=== PATIENT | male | born 1970 | race Hispanic/Latino ===

== ENCOUNTER 2017-02-18 18:30 | Emergency (ER) | payer BC ==
[2017-02-18 18:31] VITALS: BMI 22.7
[2017-02-18 18:47] VITALS: TEMP 99
--- NOTE | 2017-02-18 19:07 | ED PDOC ---
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 He explains he is on Oxycodone for chronic back pain. Patient states his PMD and psychiatrist are out of the office until next week. He states he called multiple hotlines and was told to come to the ER. Patient reports diarrhea and body aches. Denies alcohol use. Denies suicidal ideation. PMD: Dr. Wilkerson Psychiatrist: Dr. Roth Time/Duration: > week Symptom Onset: Gradual Symptom Course: Unchanged Modifying Factors (Text): None Past Medical History - Provider Review Nursing Documentation Reviewed: Yes - Infectious Disease Hx of Infectious Diseases: None - Tetanus Immunization Tetanus Immunization: Unknown - Neurological Hx Seizures: Yes - Renal Hx Renal Disorder: No - Musculoskeletal/Rheumatological Hx Back Pain: Yes (Implant in the back) - Gastrointestinal Other/Comment: Gastric Bypass - Psychiatric Hx Depression: Yes Hx Emotional Abuse: No Hx Physical Abuse: No Hx Substance Use: No - Surgical History Hx Gastric Bypass Surgery: Yes (2007) Other/Comment: gastric bypass - Anesthesia Hx Anesthesia: Yes Hx Anesthesia Reactions: No Hx Malignant Hyperthermia: No - Suicidal Assessment Feels Threatened In Home Enviroment: No Family/Social History - Physician Review Nursing Documentation Reviewed: Yes Family/Social History: Unknown Family HX Smoking Status: Heavy Smoker > 10 Cigarettes Daily Hx Alcohol Use: No Hx Substance Use: No Hx Substance Use Treatment: No Allergies/Home Meds Allergies/Adverse Reactions: Allergies bupropion HCl [From Wellbutrin] Allergy (Verified 02/18/17 18:44) ANAPHYLAXIS tram Allergy (Uncoded 02/18/17 18:44) ANAPHYLAXIS Home Medications: Home Meds Medication Instructions Recorded Confirmed Eszopiclone [Lunesta] 3 mg PO HS 08/02/13 10/22/15 Desvenlafaxine Succinate [Pristiq] 50 mg PO DAILY 03/13/14 10/22/15 Trazodone Hydrochloride [Trazodone 75 mg PO HS 03/13/14 10/22/15 HCl] Review of Systems - Physician Review All systems were reviewed & negative as marked: Yes - Review of Systems Gastrointestinal: Diarrhea Musculoskeletal: Arthralgias Psychiatric: absent: Suicidal Ideation Physical Exam Vital Signs Reviewed: Yes Vital Signs Temp Pulse Resp BP Pulse Ox 02/18/17 18:46 99.0 F 88 18 134/83 98 02/18/17 18:37 99 F 88 18 134/83 98 Temperature: Afebrile Blood Pressure: Normal Pulse: Regular Respiratory Rate: Normal Appearance: Positive for: Well-Appearing, Non-Toxic, Comfortable Pain Distress: None Mental Status: Positive for: Alert and Oriented X 3 - Systems Exam Head: Present: Atraumatic, Normocephalic Pupils: Present: PERRL Extroacular Muscles: Present: EOMI Conjunctiva: Present: Normal Mouth: Present: Moist Mucous Membranes Neck: Present: Normal Range of Motion Respiratory/Chest: Present: Clear to Auscultation, Good Air Exchange. No: Respiratory Distress, Accessory Muscle Use Cardiovascular: Present: Regular Rate and Rhythm, Normal S1, S2. No: Murmurs Abdomen: Present: Normal Bowel Sounds. No: Tenderness, Distention, Peritoneal Signs Back: Present: Normal Inspection Upper Extremity: Present: Normal Inspection. No: Cyanosis, Edema Lower Extremity: Present: Normal Inspection. No: Edema Neurological: Present: GCS=15, CN II-XII Intact, Speech Normal Skin: Present: Warm, Dry, Normal Color. No: Rashes Psychiatric: Present: Alert, Oriented x 3, Normal Insight, Normal Concentration Medical Decision Making - Medication Orders Current Medication Orders: Discontinued Medications Clonidine HCl (Catapres) 0.1 mg PO STAT STA Stop: 02/18/17 19:16 - Scribe Statement The provider has reviewed the documentation as recorded by the Adalid Baires Provider Scribe Attestation: All medical record entries made by the Scribjune were at my direction and personally dictated by me. I have reviewed the chart and agree that the record accurately reflects my personal performance of the history, physical exam, medical decision making, and the department course for this patient. I have also personally directed, reviewed, and agree with the discharge instructions and disposition. Disposition/Present on Arrival - Present on Arrival Any Indicators Present on Arrival: No History of DVT/PE: No History of Uncontrolled Diabetes: No Urinary Catheter: No History of Decub. Ulcer: No History Surgical Site Infection Following: Bariatric Surgery, None - Disposition Have Diagnosis and Disposition been Completed?: Yes Diagnosis: Opioid withdrawal Disposition: HOME/ ROUTINE Disposition Time: 19:19 Condition: STABLE Discharge Instructions (ExitCare): Opioid Withdrawal (ED) Additional Instructions: Please follow up with your doctor. Return to the ER for any worsening symptoms or for any other concerns. Prescriptions: cloNIDine [Catapres] 0.1 mg PO Q8H PRN #10 tab PRN Reason: withdrawal symptoms
[2017-02-18 23:37] VITALS: BP 126/68; PULSE 73; RESP 16; O2SAT 99
== END 2017-02-18 20:05 | disposition home or self-care (01) ==
LOC: ED 18:30
DX: F11.23 Opioid dependence with withdrawal (principal)

== ENCOUNTER 2017-05-04 17:50 | Inpatient (IN) | payer BC ==
[2017-05-04] MEDS ORDERED: Sodium Chloride 0.9% 1,000 ML IV STA (18:13)
--- NOTE | 2017-05-04 18:15 | ED PDOC ---
Arrival/HPI - General Chief Complaint: Chest Pain Time Seen by Provider: 05/04/17 17:54 Historian: Patient - History of Present Illness Narrative History of Present Illness (Text): 05/04/17 18:10 A 46 year old male presents to the emergency department with multiple complaints. Patient complains of exertional chest discomfort associated with dyspnea on exertion since earlier today. He also complaining of black stool last night. Patient denies any fever, chills, nausea, vomiting, or other complaints at this time. PMD: Dr. Puga Past Medical History - Provider Review Nursing Documentation Reviewed: Yes - Infectious Disease Hx of Infectious Diseases: None - Tetanus Immunization Tetanus Immunization: Unknown - Neurological Hx Seizures: Yes - Renal Hx Renal Disorder: No - Musculoskeletal/Rheumatological Hx Back Pain: Yes (Implant in the back, neuro stimulator) - Gastrointestinal Other/Comment: Gastric Bypass - Psychiatric Hx Depression: Yes Hx Emotional Abuse: No Hx Physical Abuse: No Hx Substance Use: No - Surgical History Hx Gastric Bypass Surgery: Yes (2007) Other/Comment: gastric bypass - Anesthesia Hx Anesthesia: Yes Hx Anesthesia Reactions: No Hx Malignant Hyperthermia: No - Suicidal Assessment Feels Threatened In Home Enviroment: No Family/Social History - Physician Review Nursing Documentation Reviewed: Yes Family/Social History: Unknown Family HX Smoking Status: Heavy Smoker > 10 Cigarettes Daily Hx Alcohol Use: No Hx Substance Use: No Hx Substance Use Treatment: No Allergies/Home Meds Allergies/Adverse Reactions: Allergies bupropion HCl [From Wellbutrin] Allergy (Verified 05/04/17 18:00) ANAPHYLAXIS tramadol Allergy (Verified 05/04/17 18:03) ANAPHYLAXIS Home Medications: Home Meds Medication Instructions Recorded Confirmed Gabapentin [Neurontin] 100 mg PO BID 05/04/17 05/04/17 Physical Exam - Physical Exam Narrative Physical Exam (Text): - Review of Systems Constitutional: Normal. absent: Fatigue, Weight Change, Fevers Eyes: Normal ENT: Normal Respiratory: Normal absent: SOB, Cough, Sputum Cardiovascular: Chest pain. Dyspnea on exertion. absent: Palpitations, Syncope Gastrointestinal: Black stool. absent: Abdominal pain, Diarrhea, Nausea, Vomiting Genitourinary: Normal. absent: Dysuria, Frequency, Hematuria Musculoskeletal: Normal. absent: Arthralgias, Back Pain, Neck Pain Skin: Normal Neurological: Normal absent: Focal Weakness Endocrine: Normal Hemo/Lymphatic: Normal Psychiatric: Normal - Physical exam Patient appears age appropriate, speaking full sentences without difficulty - Systems Exam Head: Present: Atraumatic, Normocephalic Pupils: Present: PERRL Extraocular Muscles: Present: EOMI Conjunctiva: Present: Normal Mouth: Present: Moist Mucous Membranes Neck: Present: Normal Range of Motion. No: MIDLINE TENDERNESS, Paraspinal Tenderness Respiratory/Chest: Present: Clear to Auscultation, Good Air Exchange. No: Respiratory Distress, Accessory Muscle Use, Tachypnic Cardiovascular: Present: Regular Rate and Rhythm, Normal S1, S2, Peripheral Pulses Present. No: Murmurs Abdomen: Present: Normal Bowel Sounds. Epgiastric tenderness with palpation. No : Peritoneal Signs, Rebound, Guarding, Distention Rectal: Guaiac positive. Female studio potter (Scribe - Dimpal Swanson) present. Back: Present: Normal Inspection. No: Midline Tenderness, Paraspinal Tenderness Upper Extremity: Present: Normal Inspection. No: Cyanosis, Edema Lower Extremity: Present: Normal Inspection. No: Edema Neurological: Present: GCS=15, Speech Normal, cranial nerves II through XII fully intact with no cerebellar abnormality, neuro-sensory fully intact. No focal neurological deficits. Skin: Present: Warm, Dry, Normal Color. No: Rashes Lymphatic: Present: OX3, NI, NC Psychiatric: Present: Alert, Oriented x 3, Normal Insight, Normal Concentration Vital Signs Reviewed: Yes Vital Signs Temp Pulse Resp BP Pulse Ox 05/04/17 19:24 68 18 109/54 L 98 05/04/17 17:55 98.6 F 88 18 121/69 97 Temperature: Afebrile Blood Pressure: Normal Pulse: Regular Respiratory Rate: Normal Appearance: Positive for: Well-Appearing, Non-Toxic, Comfortable Pain Distress: None Mental Status: Positive for: Alert and Oriented X 3 Medical Decision Making ED Course and Treatment: 05/04/17 18:10 Impression: A 46 year old male with chest pain and black stool. On physical examination the patient has epigastric tenderness with palpation and is guaiac positive. Differential Diagnosis included but are not limited to: ACS vs. GI bleed Plan: -- EKG -- Chest X-ray -- Labs -- Urinalysis -- Protonix and IV Fluids -- Reassess and disposition Progress Notes: EKG: Ordered, reviewed, and independently interpreted the EKG. Rate : 80 BPM Rhythm : NSR Interpretation : No ST-segment elevations, normal intervals. Interpreted by me. 05/04/17 20:08 Hb stable normal BUN/Cre ratio VSS dw Dr. Hyde, covering Dr. Ferrer (pt states that's his PMD), agrees with tele admission pt in no distress with no complaints, aware of and agrees with plan Chest xray interpreted by ED physician shows no pneumothorax, no cardiomegaly, no infiltrates - Lab Interpretations Lab Results: 05/04/17 18:44 05/04/17 18:44 Lab Results 05/04/17 19:00: Blood Type Confirm O POSITIVE 05/04/17 18:44: Blood Type O POSITIVE, Antibody Screen Negative, BBK History Checked No verified bt 05/04/17 18:44: TIBC 358 05/04/17 18:44: Sodium 139, Potassium 3.6, Chloride 106, Carbon Dioxide 21, Anion Gap 16, BUN 17, Creatinine 0.7, Est GFR ( Amer) > 60, Est GFR (Non- Af Amer) > 60, Random Glucose 81, Calcium 9.4, Ferritin Pending, Total Bilirubin 0.5, AST 19, ALT 17, Alkaline Phosphatase 50, Lactate Dehydrogenase 323 L, Total Creatine Kinase 43, Troponin I < 0.01, NT-Pro-B Natriuret Pep 72.4 , Total Protein 6.9, Albumin 4.0, Globulin 2.9, Albumin/Globulin Ratio 1.4 05/04/17 18:44: PT 11.3, INR 1.05, APTT 26.1 05/04/17 18:44: WBC 8.6 D, RBC 4.39, Hgb 11.4 L, Hct 35.0 L, MCV 79.7 L, MCH 26.0, MCHC 32.6, RDW 15.3 H, Plt Count 295, MPV 9.4, Gran % 66.3, Lymph % (Auto ) 22.8, [place] % (Auto) 8.3 H, Eos % (Auto) 2.1, Baso % (Auto) 0.5, Gran # 5.71, Lymph # 2.0, [place] # 0.7 H, Eos # 0.2, Baso # 0.04 I have reviewed the lab results: Yes - RAD Interpretation Radiology Orders: 05/04/17 18:12 CHEST PORTABLE [RAD] Stat - Medication Orders Current Medication Orders: Discontinued Medications Sodium Chloride (Sodium Chloride 0.9%) 1,000 mls @ 1,000 mls/hr IV .Q1H STA Stop: 05/04/17 19:12 Last Admin: 05/04/17 18:30 Dose: 1,000 mls/hr Pantoprazole Sodium (Protonix Inj) 40 mg IVP STAT STA Stop: 05/04/17 18:12 Last Admin: 05/04/17 18:31 Dose: 40 mg - Scribe Statement The provider has reviewed the documentation as recorded by the Leroyibjune Swanson Provider Scribe Attestation: All medical record entries made by the Adalid were at my direction and personally dictated by me. I have reviewed the chart and agree that the record accurately reflects my personal performance of the history, physical exam, medical decision making, and the department course for this patient. I have also personally directed, reviewed, and agree with the discharge instructions and disposition. Disposition/Present on Arrival - Present on Arrival Any Indicators Present on Arrival: No History of DVT/PE: No History of Uncontrolled Diabetes: No Urinary Catheter: No History of Decub. Ulcer: No History Surgical Site Infection Following: Bariatric Surgery, None - Disposition Have Diagnosis and Disposition been Completed?: Yes Diagnosis: GI bleed Disposition: HOSPITALIZED Disposition Time: 20:11 Patient Plan: Admission Patient Problems: Current Active Problems Problem Status Onset GI bleed Acute Condition: FAIR Referrals: Nancy Puga MD [Primary Care Provider] - Follow up with primary
[2017-05-04 18:53] LABS: BASO # 0.04 K/mm3 (0.0-2.0); BASO % 0.5 % (0.0-3.0); EOS # 0.2 (0.0-0.7); EOS % 2.1 % (1.5-5.0); GRAN # 5.71 (1.4-6.5); GRAN % 66.3 % (50.0-68.0); HEMOGLOBIN 11.4 gm/dL (14.0-18.0); LYMPH % 22.8 % (22.0-35.0); MEAN CELL VOLUME 79.7 fL (80.0-105.0); MEAN CORPUSCULAR HGB CONC 32.6 g/dl (31.0-37.0); MEAN PLATELET VOLUME 9.4 fl (7.0-11.0); MONO # 0.7 (0.1-0.6); MONO % 8.3 % (1.0-6.0); PLATELET COUNT 295 10^3/uL (120.0-450.0); RBC 4.39 10^6/uL (3.5-6.1); RED CELL DISTRIBUTION WIDTH 15.3 % (11.5-14.5); WHITE BLOOD COUNT 8.6 10^3/ul (4.5-11.0)
[2017-05-04 19:04] LABS: ALB/GLOB RATIO 1.4 (1.1-1.8); ALT/SGPT 17 U/L (7-56); AST/SGOT 19 U/L (15-59); BLOOD UREA NITROGEN 17 mg/dL (7-21); CALCIUM 9.4 mg/dL (8.4-10.5); GFR AFRICAN-AMERICAN > 60; GFR NON-AFRICAN AMERICAN > 60
[2017-05-04 19:05] LABS: INR 1.05 (0.93-1.08); PARTIAL THROMBOPLASTIN TIME 26.1 Seconds (23.7-30.8); PROTHROMBIN TIME 11.3 Seconds (9.9-11.8)
[2017-05-04 19:16] LABS: B-TYPE NATRIURETIC PEPTIDE 72.4 pg/mL (0-450)
[2017-05-04 19:18] LABS: TROPONIN I < 0.01 ng/mL
[2017-05-04] MEDS ORDERED: Morphine 4 mg/ml ISec IVP STA (21:11)
[2017-05-05 01:41] VITALS: BMI 24.3
[2017-05-05] MEDS ORDERED: Morphine 4 mg/ml ISec IVP STA (04:12)
--- NOTE | 2017-05-05 08:11 | RAD ---
HISTORY: cough COMPARISON: 12/31/2014 FINDINGS: LUNGS: No active pulmonary disease. PLEURA: No significant pleural effusion identified, no pneumothorax apparent. CARDIOVASCULAR: Normal. OSSEOUS STRUCTURES: No significant abnormalities. VISUALIZED UPPER ABDOMEN: Normal. OTHER FINDINGS: None. IMPRESSION: No active disease.
--- NOTE | 2017-05-05 08:19 | CP.PCM.HP ---
History of Present Illness - History of Present Illness History of Present Illness: 46 y/o w/m w/ hx of exertional cp sob x 24 h and black stools and not feeling well and comes to the er Present on Admission - Present on Admission Any Indicators Present on Admission: Yes History of DVT/PE: No History of Uncontrolled Diabetes: No Urinary Catheter: No Decubitus Ulcer Present: No Review of Systems - Cardiovascular Cardiovascular: Chest Pain at Rest, Chest Pain with Activity - Gastrointestinal Gastrointestinal: Abdominal Pain, Change in Bowel Habits, Change in Stool Character, Melena - Hematologic/Lymphatic Additional comments: weakness Past Patient History - Infectious Disease Hx of Infectious Diseases: None - Tetanus Immunizations Tetanus Immunization: Unknown - Past Social History Smoking Status: Current Some Days Smoker Chewing Tobacco Use: No Cigar Use: No Alcohol: Occasional Drugs: Denies - NEUROLOGICAL Hx Seizures: Yes - RENAL Hx Chronic Kidney Disease: No - ENDOCRINE/METABOLIC Hx Diabetes Mellitus Type 1: Yes - MUSCULOSKELETAL/RHEUMATOLOGICAL Hx Back Pain: Yes (Implant in the back, neuro stimulator) Hx Falls: No - GASTROINTESTINAL Other/Comment: Gastric Bypass - PSYCHIATRIC Hx Depression: Yes Hx Emotional Abuse: No Hx Physical Abuse: No Hx Substance Use: No - SURGICAL HISTORY Hx Gastric Bypass Surgery: Yes (2007) Other/Comment: gastric bypass - ANESTHESIA Hx Anesthesia: Yes Hx Anesthesia Reactions: No Hx Malignant Hyperthermia: No Meds Allergies/Adverse Reactions: Allergies Allergy/AdvReac Type Severity Reaction Status Date / Time bupropion HCl Allergy ANAPHYLAXIS Verified 05/04/17 18:00 [From Wellbutrin] tramadol Allergy ANAPHYLAXIS Verified 05/04/17 18:03 Physical Exam - Constitutional Appears: No Acute Distress - Head Exam Head Exam: ATRAUMATIC, NORMAL INSPECTION, NORMOCEPHALIC - Eye Exam Eye Exam: Normal appearance - ENT Exam ENT Exam: Mucous Membranes Moist - Neck Exam Neck exam: Positive for: Normal Inspection - Respiratory Exam Respiratory Exam: Clear to Auscultation Bilateral, NORMAL BREATHING PATTERN - Cardiovascular Exam Cardiovascular Exam: REGULAR RHYTHM - GI/Abdominal Exam GI & Abdominal Exam: Hypoactive Bowel Sounds, Normal Bowel Sounds, Soft - Rectal Exam Rectal Exam: Black Stool - Extremities Exam Extremities exam: Positive for: normal inspection - Back Exam Back exam: NORMAL INSPECTION - Neurological Exam Neurological exam: Alert, CN II-XII Intact, Reflexes Normal - Psychiatric Exam Psychiatric exam: Normal Affect, Normal Mood - Skin Skin Exam: Warm Results - Vital Signs Recent Vital Signs: Last Vital Signs Temp 98.2 F 05/05/17 06:00 Pulse 59 L 05/05/17 06:00 Resp 20 05/05/17 06:00 BP 109/56 L 05/05/17 06:00 Pulse Ox 98 05/04/17 23:10 - Labs Result Diagrams: 05/04/17 18:44 05/04/17 18:44 Assessment & Plan - Assessment and Plan (Free Text) Assessment: cp black stools Plan: npo iv protonix checking labs tpns stools for ob gi and cardio eval iv fluids - Date & Time Date: 05/05/17 Time: 07:00
[2017-05-05] MEDS: Sodium Chloride 0.45% 1,000 ML IV SCH (09:10)
--- NOTE | 2017-05-05 11:07 | CP.PCM.CON ---
History of Present Illness - History of Present Illness History of Present Illness: Seen and examined at bedside earlier today, chart reviewed. Request for consult is for GI Bleed. HPI: This is a 46 year old male with a history of gastric bypass, chronic back pain with nuero stimulator comes to the ER with c/o exertional chest pain with SOB yesterday. He also c/o black appearing stool the night before. He right now c/o of mainly epigastric pain for 2 days, no acid reflux, He did have nausea, prior to this occurrence he was in his usual state of health, no unintentional weight loss, he had EGD 2007, does not recall any acute findings, nver had colon. He denies use of NSAIDS. Guiac positive in the ER, no futher episodes of melena. Attempt to eat tin the ER, patient said he vomited, no hematemesis. PMH: gastric bypass, back pain with neuro stimulator FHX: noncontributory at this time ALLERIGES: TRAMADOL,BUPROPION HCL MEDS: reviewed as per [facility] SOCIAL HX: smoker, drinks on occasion, no drugs ROS: systems reviewed with positive findings, see HPI Past Patient History - Infectious Disease Hx of Infectious Diseases: None - Tetanus Immunizations Tetanus Immunization: Unknown - Past Social History Smoking Status: Current Some Days Smoker Chewing Tobacco Use: No Cigar Use: No Alcohol: Occasional Drugs: Denies - NEUROLOGICAL Hx Seizures: Yes - RENAL Hx Chronic Kidney Disease: No - ENDOCRINE/METABOLIC Hx Diabetes Mellitus Type 1: Yes - MUSCULOSKELETAL/RHEUMATOLOGICAL Hx Back Pain: Yes (Implant in the back, neuro stimulator) Hx Falls: No - GASTROINTESTINAL Other/Comment: Gastric Bypass - PSYCHIATRIC Hx Depression: Yes Hx Emotional Abuse: No Hx Physical Abuse: No Hx Substance Use: No - SURGICAL HISTORY Hx Gastric Bypass Surgery: Yes (2007) Other/Comment: gastric bypass - ANESTHESIA Hx Anesthesia: Yes Hx Anesthesia Reactions: No Hx Malignant Hyperthermia: No Meds Allergies/Adverse Reactions: Allergies Allergy/AdvReac Type Severity Reaction Status Date / Time bupropion HCl Allergy ANAPHYLAXIS Verified 05/04/17 18:00 [From Wellbutrin] tramadol Allergy ANAPHYLAXIS Verified 05/04/17 18:03 - Medications Medications: Current Medications Acetaminophen (Tylenol 325mg Tab) 650 mg PO Q6H PRN PRN Reason: Pain, severe (8-10) Sodium Chloride (Sodium Chloride 0.45%) 1,000 mls @ 40 mls/hr IV .Q24H [facility] Last Admin: 05/05/17 09:10 Dose: 40 mls/hr Ketorolac Tromethamine (Toradol) 30 mg IVP Q6 PRN PRN Reason: Pain, moderate (4-7) Pantoprazole Sodium (Protonix Inj) 40 mg IVP Q12 [facility] Last Admin: 05/05/17 09:10 Dose: 40 mg Physical Exam - Constitutional Appears: No Acute Distress - Head Exam Head Exam: NORMAL INSPECTION - Eye Exam Eye Exam: Normal appearance. absent: Scleral icterus - ENT Exam ENT Exam: Mucous Membranes Moist - Neck Exam Neck exam: Positive for: Normal Inspection - Respiratory Exam Respiratory Exam: Clear to Auscultation Bilateral, NORMAL BREATHING PATTERN. absent: Respiratory Distress - Cardiovascular Exam Cardiovascular Exam: +S1, +S2 - GI/Abdominal Exam GI & Abdominal Exam: Normal Bowel Sounds, Soft, Tenderness (epigastric). absent : Distended, Guarding, Organomegaly, Rebound - Extremities Exam Extremities exam: Positive for: pedal pulses present. Negative for: calf tenderness, pedal edema - Neurological Exam Neurological exam: Alert, Oriented x3 - Skin Skin Exam: Dry, Warm Results - Vital Signs Recent Vital Signs: Last Vital Signs Temp 98.2 F 05/05/17 06:00 Pulse 59 L 05/05/17 06:00 Resp 20 05/05/17 06:00 BP 109/56 L 05/05/17 06:00 Pulse Ox 98 05/04/17 23:10 - Labs Result Diagrams: 05/04/17 18:44 05/04/17 18:44 Assessment & Plan - Assessment and Plan (Free Text) Assessment: ASSESSMENT: GI Bleed, R/O PUD Atypical chest pain/Epigastric Pain r/o PUD, gallstones Gastric Bypass Back pain w/neuro stimulator PLAN: NPO, continue IVF for hydration Protonix 40 BID abdominal US cardiac evaluation discuss w/ patient EGD today if cardiac stable Thank you for this consult and for allowing us to participate in your patient care, will make further recommendation based upon clinical course. Seen and discussed with Dr. Bernard.
--- NOTE | 2017-05-05 11:09 | CP.PCM.CON ---
History of Present Illness - History of Present Illness History of Present Illness: Cardiology consult 05/05/2017 46 y old male presents with tarry stools PMH hx of smoking with strong family hx of CAD w father w CABG Denies DM, Hypertension and hypercholesteremia No previous cardiac HX no dyspnea SH 1ppk per day ROS....no cardiac symptoms PE VSS neck neg JVD lungs clear cor S1S2 est no c/c/e EKG WNL trop neg x 2 Impressions Epigastric chest pain GI bleed anemia COPD Plan...for endo today advise pt to stop smoking for out patient est once GI bleeding is resolved Klaus Henriquez MD Past Patient History - Infectious Disease Hx of Infectious Diseases: None - Tetanus Immunizations Tetanus Immunization: Unknown - Past Social History Smoking Status: Current Some Days Smoker Chewing Tobacco Use: No Cigar Use: No Alcohol: Occasional Drugs: Denies - NEUROLOGICAL Hx Seizures: Yes - RENAL Hx Chronic Kidney Disease: No - ENDOCRINE/METABOLIC Hx Diabetes Mellitus Type 1: Yes - MUSCULOSKELETAL/RHEUMATOLOGICAL Hx Back Pain: Yes (Implant in the back, neuro stimulator) Hx Falls: No - GASTROINTESTINAL Other/Comment: Gastric Bypass - PSYCHIATRIC Hx Depression: Yes Hx Emotional Abuse: No Hx Physical Abuse: No Hx Substance Use: No - SURGICAL HISTORY Hx Gastric Bypass Surgery: Yes (2007) Other/Comment: gastric bypass - ANESTHESIA Hx Anesthesia: Yes Hx Anesthesia Reactions: No Hx Malignant Hyperthermia: No Meds Allergies/Adverse Reactions: Allergies Allergy/AdvReac Type Severity Reaction Status Date / Time bupropion HCl Allergy ANAPHYLAXIS Verified 05/04/17 18:00 [From Wellbutrin] tramadol Allergy ANAPHYLAXIS Verified 05/04/17 18:03 - Medications Medications: Current Medications Acetaminophen (Tylenol 325mg Tab) 650 mg PO Q6H PRN PRN Reason: Pain, severe (8-10) Sodium Chloride (Sodium Chloride 0.45%) 1,000 mls @ 40 mls/hr IV .Q24H [facility] Last Admin: 05/05/17 09:10 Dose: 40 mls/hr Ketorolac Tromethamine (Toradol) 30 mg IVP Q6 PRN PRN Reason: Pain, moderate (4-7) Pantoprazole Sodium (Protonix Inj) 40 mg IVP Q12 [facility] Last Admin: 05/05/17 09:10 Dose: 40 mg Results - Vital Signs Recent Vital Signs: Last Vital Signs Temp 98.2 F 05/05/17 06:00 Pulse 59 L 05/05/17 06:00 Resp 20 05/05/17 06:00 BP 109/56 L 05/05/17 06:00 Pulse Ox 98 05/04/17 23:10 - Labs Result Diagrams: 05/04/17 18:44 05/04/17 18:44
--- NOTE | 2017-05-05 11:56 | US ---
HISTORY: epigastric pain, gastric bypass COMPARISON: None. TECHNIQUE: Grayscale imaging was performed. FINDINGS: LIVER: Measures 14.9 cm. Normal echogenicity of the liver parenchyma. No mass. No intrahepatic bile duct dilatation. GALLBLADDER: There are multiple gallstones. No wall thickening, pericholecystic fluid or positive sonographic Pizano's sign. COMMON BILE DUCT: Measures 2.0 mm. No stones. No dilatation. PANCREAS: Unremarkable as visualized. No mass. No ductal dilatation. RIGHT KIDNEY: Measures 11.3cm. Normal echogenicity. No calculus, mass, or hydronephrosis. LEFT KIDNEY: Measures 11.4cm. Normal echogenicity. No calculus, mass, or hydronephrosis. SPLEEN: Normal in size and contour. No mass. AORTA: No aneurysmal dilatation. IVC: Unremarkable. OTHER FINDINGS: None. IMPRESSION: Cholelithiasis.
--- NOTE | 2017-05-05 12:45 | CARD ---
APPROVED REPORT EKG Measurement Heart [id number] OR [id number] <Conclusion> Normal sinus rhythm Normal ECG
[2017-05-05 14:07] LABS: ALB/GLOB RATIO 1.3 (1.1-1.8); ALBUMIN 3.5 g/dL (3.0-4.8); ALT/SGPT 18 U/L (7-56); AST/SGOT 23 U/L (15-59); BLOOD UREA NITROGEN 12 mg/dL (7-21); GFR AFRICAN-AMERICAN > 60; GFR NON-AFRICAN AMERICAN > 60
[2017-05-05 14:11] LABS: FERRITIN 6.9 ng/mL
[2017-05-05 14:16] LABS: TROPONIN I < 0.01 ng/mL
[2017-05-05] MEDS ORDERED: Propofol 10 mg/ml Inj (20 ML) ONE (15:30)
[2017-05-05] MEDS ORDERED: Lidocaine 2% Inj (20ml) ONE (15:31)
[2017-05-05] MEDS ORDERED: Sodium Chloride 0.9% 1,000 ML IV SCH ×2 (16:45→17:30)
--- NOTE | 2017-05-05 17:37 | CP.PCM.CON ---
<Cheyanne Sosa - Last Filed: 05/05/17 17:37> History of Present Illness - History of Present Illness History of Present Illness: PGY-2 ICU consult note 46 yo male with PMH of gastric bypass surgery, seizures, DM presented with dark stool, epigastric and chest pain. Patient states that pain started about 2 days before admission. Patient under went EGD with cauterization. He currently complains of epigastric pain. Denies fever, chill, chest pain, sob, n/v. PMH: seizures, DM, chronic back pain PSH: Gastric bypass surgery (8 yo) Social hx: smokes 1ppd for 8 years, denies alcohol use and illicit drug use allergy: bupropion, tramadol Review of Systems - Constitutional Constitutional: absent: Chills, Fever, Headache - EENT Nose/Mouth/Throat: absent: Nasal Congestion, Nasal Discharge, Sore Throat - Cardiovascular Cardiovascular: absent: Chest Pain, Diaphoresis, Dyspnea - Respiratory Respiratory: absent: Cough, Dyspnea, Hemoptysis - Gastrointestinal Gastrointestinal: Abdominal Pain, Melena. absent: Constipation, Diarrhea, Vomiting - Genitourinary Genitourinary: absent: Difficulty Urinating, Dysuria - Musculoskeletal Musculoskeletal: Back Pain. absent: Arthralgias, Muscle Weakness, Neck Pain - Integumentary Integumentary: absent: Rash, Skin Ulcer, Sores - Neurological Neurological: absent: Dizziness, Focal Weakness, Headaches - Hematologic/Lymphatic Hematologic: absent: Easy Bleeding, Easy Bruising Past Patient History - Infectious Disease Hx of Infectious Diseases: None - Tetanus Immunizations Tetanus Immunization: Unknown - Past Social History Smoking Status: Heavy Smoker > 10 Cigarettes Daily Chewing Tobacco Use: No Cigar Use: No Alcohol: Occasional Drugs: Denies - NEUROLOGICAL Hx Seizures: Yes - RENAL Hx Chronic Kidney Disease: No - ENDOCRINE/METABOLIC Hx Diabetes Mellitus Type 1: Yes - HEMATOLOGICAL/ONCOLOGICAL Hx Blood Transfusions: No Hx Blood Transfusion Reaction: No - MUSCULOSKELETAL/RHEUMATOLOGICAL Hx Back Pain: Yes (Implant in the back, neuro stimulator) Hx Falls: No - GASTROINTESTINAL Other/Comment: Gastric Bypass - PSYCHIATRIC Hx Depression: Yes Hx Emotional Abuse: No Hx Physical Abuse: No Hx Substance Use: No - SURGICAL HISTORY Hx Surgeries: Yes - ANESTHESIA Hx Anesthesia Reactions: No Hx Malignant Hyperthermia: No Meds Allergies/Adverse Reactions: Allergies Allergy/AdvReac Type Severity Reaction Status Date / Time bupropion HCl Allergy ANAPHYLAXIS Verified 05/04/17 18:00 [From Wellbutrin] tramadol Allergy ANAPHYLAXIS Verified 05/04/17 18:03 - Medications Medications: Current Medications Acetaminophen (Tylenol 325mg Tab) 650 mg PO Q6H PRN PRN Reason: Pain, severe (8-10) Sodium Chloride (Sodium Chloride 0.45%) 1,000 mls @ 40 mls/hr IV .Q24H [facility] Last Admin: 05/05/17 09:10 Dose: 40 mls/hr Sodium Chloride (Sodium Chloride 0.9%) 1,000 mls @ 100 mls/hr IV .Q10H [facility] Sodium Chloride (Sodium Chloride 0.9%) 1,000 mls @ 100 mls/hr IV .Q10H [facility] Ketorolac Tromethamine (Toradol) 30 mg IVP Q6 PRN PRN Reason: Pain, moderate (4-7) Last Admin: 05/05/17 11:10 Dose: 30 mg Morphine Sulfate (Morphine) 1 mg IVP Q6 PRN PRN Reason: Pain, moderate (4-7) Pantoprazole Sodium (Protonix Inj) 40 mg IVP Q12 [facility] Last Admin: 05/05/17 09:10 Dose: 40 mg Physical Exam - Constitutional Appears: Well, No Acute Distress - Head Exam Head Exam: ATRAUMATIC, NORMOCEPHALIC - Eye Exam Eye Exam: EOMI, Normal appearance - ENT Exam ENT Exam: Mucous Membranes Moist - Respiratory Exam Respiratory Exam: Clear to Auscultation Bilateral, NORMAL BREATHING PATTERN. absent: Rales, Rhonchi, Wheezes, Respiratory Distress - Cardiovascular Exam Cardiovascular Exam: REGULAR RHYTHM, +S1, +S2. absent: Tachycardia, Diastolic murmur, Systolic Murmur - GI/Abdominal Exam GI & Abdominal Exam: Normal Bowel Sounds, Soft, Tenderness (epigastric). absent : Distended, Firm - Extremities Exam Extremities exam: Positive for: normal inspection. Negative for: pedal edema, tenderness - Neurological Exam Neurological exam: Alert, Oriented x3 - Skin Skin Exam: Dry, Intact, Normal Color, Warm Results - Vital Signs Recent Vital Signs: Last Vital Signs Temp 98.2 F 05/05/17 17:20 Pulse 48 L 05/05/17 17:20 Resp 14 05/05/17 17:20 BP 112/62 05/05/17 17:20 Pulse Ox 100 05/05/17 17:20 - Labs Result Diagrams: 05/04/17 18:44 05/05/17 13:00 Labs: Laboratory Results - last 24 hr 05/05/17 13:00 Sodium 140 Potassium 4.1 Chloride 107 Carbon Dioxide 25 Anion Gap 12 BUN 12 Creatinine 0.7 Est GFR ( Amer) > 60 Est GFR (Non-Af Amer) > 60 Random Glucose 71 Calcium 9.0 Total Bilirubin 0.6 AST 23 ALT 18 Alkaline Phosphatase 44 Troponin I < 0.01 Total Protein 6.2 Albumin 3.5 Globulin 2.7 Albumin/Globulin Ratio 1.3 Assessment & Plan - Assessment and Plan (Free Text) Assessment: 46 yo male with PMH of gastric bypass surgery, seizures, DM presented with jejunal ulcer with nonbleeding visible vessel s/p cautery. Plan: Neuro: stable, pt alert and oriented Cardiovascular: hemdynamically stable maintain map>65 Pulm: stable, saturating well maintain SaO2>90% GI: melena EGD showed jejunal ulcer with nonbleeding visible vessel s/p cautery. Pathology sent NPO protonix drip cbc q6 ho IVF, NS @100 GI following andrzej: stable, cont to monitor replace electrolytes as needed Heme: hgb at 11.4 will monitor for GI bleed, cbc q6 <Antony Yates - Last Filed: 05/05/17 17:59> Meds - Medications Medications: Current Medications Acetaminophen (Tylenol 325mg Tab) 650 mg PO Q6H PRN PRN Reason: Pain, severe (8-10) Sodium Chloride (Sodium Chloride 0.45%) 1,000 mls @ 40 mls/hr IV .Q24H [facility] Last Admin: 05/05/17 09:10 Dose: 40 mls/hr Sodium Chloride (Sodium Chloride 0.9%) 1,000 mls @ 100 mls/hr IV .Q10H [facility] Sodium Chloride (Sodium Chloride 0.9%) 1,000 mls @ 100 mls/hr IV .Q10H [facility] Ketorolac Tromethamine (Toradol) 30 mg IVP Q6 PRN PRN Reason: Pain, moderate (4-7) Last Admin: 05/05/17 11:10 Dose: 30 mg Morphine Sulfate (Morphine) 1 mg IVP Q6 PRN PRN Reason: Pain, moderate (4-7) Pantoprazole Sodium (Protonix Inj) 40 mg IVP Q12 [facility] Last Admin: 05/05/17 09:10 Dose: 40 mg Results - Vital Signs Recent Vital Signs: Last Vital Signs Temp 98.2 F 05/05/17 17:35 Pulse 52 L 05/05/17 17:35 Resp 16 05/05/17 17:35 BP 110/62 05/05/17 17:35 Pulse Ox 100 05/05/17 17:35 - Labs Result Diagrams: 05/05/17 17:13 05/05/17 13:00 Labs: Laboratory Results - last 24 hr 05/05/17 05/05/17 13:00 17:13 WBC 7.0 RBC 3.95 Hgb 10.2 L Hct 32.0 L MCV 81.0 MCH 25.8 MCHC 31.9 RDW 15.3 H Plt Count 231 MPV 9.5 Sodium 140 Potassium 4.1 Chloride 107 Carbon Dioxide 25 Anion Gap 12 BUN 12 Creatinine 0.7 Est GFR ( Amer) > 60 Est GFR (Non-Af Amer) > 60 Random Glucose 71 Calcium 9.0 Total Bilirubin 0.6 AST 23 ALT 18 Alkaline Phosphatase 44 Troponin I < 0.01 Total Protein 6.2 Albumin 3.5 Globulin 2.7 Albumin/Globulin Ratio 1.3 Attending/Attestation - Attestation I have personally seen and examined this patient.: Yes I have fully participated in the care of the patient.: Yes I have reviewed all pertinent clinical information: Yes Notes (Text): 05/05/17 17:58 46 yo with upper GI bleed and visible vessel on EGD. Will admit to ICU for observation, protonix drip, IVF, NPO, serial CBC ccm time 40 min
[2017-05-05 17:44] LABS: HEMOGLOBIN 10.2 gm/dL (14.0-18.0); MEAN CORPUSCULAR HEMOGLOBIN 25.8 pg (25.0-35.0); MEAN CORPUSCULAR HGB CONC 31.9 g/dl (31.0-37.0); MEAN PLATELET VOLUME 9.5 fl (7.0-11.0); RBC 3.95 10^6/uL (3.5-6.1); RED CELL DISTRIBUTION WIDTH 15.3 % (11.5-14.5)
--- NOTE | 2017-05-05 18:28 | CP.PCM.CON ---
History of Present Illness - History of Present Illness History of Present Illness: SURGERY CONSULT NOTE FOR DR. SINGH 46M presents with abdominal pain and blood per rectum. Symptoms started 2 days ago while and home and he does not recall doing anyhting in partiicular at that time. Patient denies fevers, chills, nausea or vomiting. He describes the bowel movements as black tarry stools. He states his last episode was this past afternoon before his endoscopy. He has not had a bloody BM after the endoscopy. He continues to complain of mild LUQ tenderness on palpations. He has lost 190lb in 9 years since his gastric bypass. PMH: seizures, DM, chronic back pain, herniated disc PSH: Gastric bypass surgery, Nerve stimulator Social: smokes 1ppd for 8 years, denies alcohol use and illicit drug use Allergies: bupropion, tramadol Past Patient History - Infectious Disease Hx of Infectious Diseases: None - Tetanus Immunizations Tetanus Immunization: Unknown - Past Social History Smoking Status: Heavy Smoker > 10 Cigarettes Daily Chewing Tobacco Use: No Cigar Use: No Alcohol: Occasional Drugs: Denies - NEUROLOGICAL Hx Seizures: Yes - RENAL Hx Chronic Kidney Disease: No - ENDOCRINE/METABOLIC Hx Diabetes Mellitus Type 1: Yes - HEMATOLOGICAL/ONCOLOGICAL Hx Blood Transfusions: No Hx Blood Transfusion Reaction: No - MUSCULOSKELETAL/RHEUMATOLOGICAL Hx Back Pain: Yes (Implant in the back, neuro stimulator) Hx Falls: No - GASTROINTESTINAL Other/Comment: Gastric Bypass - PSYCHIATRIC Hx Depression: Yes Hx Emotional Abuse: No Hx Physical Abuse: No Hx Substance Use: No - SURGICAL HISTORY Hx Surgeries: Yes - ANESTHESIA Hx Anesthesia Reactions: No Hx Malignant Hyperthermia: No Meds Allergies/Adverse Reactions: Allergies Allergy/AdvReac Type Severity Reaction Status Date / Time bupropion HCl Allergy ANAPHYLAXIS Verified 05/04/17 18:00 [From Wellbutrin] tramadol Allergy ANAPHYLAXIS Verified 05/04/17 18:03 - Medications Medications: Current Medications Acetaminophen (Tylenol 325mg Tab) 650 mg PO Q6H PRN PRN Reason: Pain, severe (8-10) Sodium Chloride (Sodium Chloride 0.45%) 1,000 mls @ 40 mls/hr IV .Q24H [facility] Last Admin: 05/05/17 09:10 Dose: 40 mls/hr Sodium Chloride (Sodium Chloride 0.9%) 1,000 mls @ 100 mls/hr IV .Q10H [facility] Sodium Chloride (Sodium Chloride 0.9%) 1,000 mls @ 100 mls/hr IV .Q10H [facility] Ketorolac Tromethamine (Toradol) 30 mg IVP Q6 PRN PRN Reason: Pain, moderate (4-7) Last Admin: 05/05/17 11:10 Dose: 30 mg Morphine Sulfate (Morphine) 1 mg IVP Q6 PRN PRN Reason: Pain, moderate (4-7) Pantoprazole Sodium (Protonix Inj) 40 mg IVP Q12 [facility] Last Admin: 05/05/17 09:10 Dose: 40 mg Physical Exam - Constitutional Appears: Non-toxic, No Acute Distress - Head Exam Head Exam: ATRAUMATIC - Eye Exam Eye Exam: EOMI, PERRL - ENT Exam ENT Exam: Mucous Membranes Moist - Respiratory Exam Respiratory Exam: Clear to Auscultation Bilateral, NORMAL BREATHING PATTERN - Cardiovascular Exam Cardiovascular Exam: REGULAR RHYTHM, +S1, +S2 - GI/Abdominal Exam GI & Abdominal Exam: Soft, Tenderness (mild LUQ tenderness). absent: Distended , Firm, Guarding, Rebound, Rigid - Rectal Exam Rectal Exam: Black Stool - Extremities Exam Extremities exam: Negative for: pedal edema, tenderness - Neurological Exam Neurological exam: Alert, Oriented x3 - Psychiatric Exam Psychiatric exam: Normal Affect, Normal Mood - Skin Skin Exam: Dry, Intact, Normal Color, Warm Results - Vital Signs Recent Vital Signs: Last Vital Signs Temp 98.2 F 05/05/17 17:35 Pulse 52 L 05/05/17 17:35 Resp 16 05/05/17 17:35 BP 110/62 05/05/17 17:35 Pulse Ox 100 05/05/17 17:35 - Labs Result Diagrams: 05/05/17 17:13 05/05/17 13:00 Labs: Laboratory Results - last 24 hr 05/05/17 05/05/17 13:00 17:13 WBC 7.0 RBC 3.95 Hgb 10.2 L Hct 32.0 L MCV 81.0 MCH 25.8 MCHC 31.9 RDW 15.3 H Plt Count 231 MPV 9.5 Sodium 140 Potassium 4.1 Chloride 107 Carbon Dioxide 25 Anion Gap 12 BUN 12 Creatinine 0.7 Est GFR ( Amer) > 60 Est GFR (Non-Af Amer) > 60 Random Glucose 71 Calcium 9.0 Total Bilirubin 0.6 AST 23 ALT 18 Alkaline Phosphatase 44 Troponin I < 0.01 Total Protein 6.2 Albumin 3.5 Globulin 2.7 Albumin/Globulin Ratio 1.3 Assessment & Plan - Assessment and Plan (Free Text) Assessment: 46M presents with black stools and abdominal pain Plan: Endoscopy: jejunal ulcer, non-bleeding visible vessel US: cholelithiasis - NPO, Pain control - PPI, IVF - monitor CBC - await pathology from EGD - surgery on standby Further recs discuss with Dr. Guicho Edouard, PGY2
[2017-05-05] MEDS: Morphine 2 mg/ml ISec IVP PRN (18:50)
[2017-05-05 22:53] VITALS: TEMP 97
[2017-05-06] MEDS: Morphine 2 mg/ml ISec IVP PRN ×3 (00:51→12:41)
[2017-05-06 00:56] LABS: BASO # 0.05 K/mm3 (0.0-2.0); BASO % 0.8 % (0.0-3.0); EOS # 0.2 (0.0-0.7); EOS % 3.1 % (1.5-5.0); GRAN # 3.06 (1.4-6.5); GRAN % 50.7 % (50.0-68.0); HEMOGLOBIN 10.7 gm/dL (14.0-18.0); LYMPH # 2.2 (1.2-3.4); LYMPH % 36.5 % (22.0-35.0); MEAN CELL VOLUME 80.8 fL (80.0-105.0); MEAN CORPUSCULAR HEMOGLOBIN 25.4 pg (25.0-35.0); MEAN CORPUSCULAR HGB CONC 31.5 g/dl (31.0-37.0); MONO # 0.5 (0.1-0.6); MONO % 8.9 % (1.0-6.0); PLATELET COUNT 224 10^3/uL (120.0-450.0); RBC 4.21 10^6/uL (3.5-6.1); RED CELL DISTRIBUTION WIDTH 15.2 % (11.5-14.5); WHITE BLOOD COUNT 6.1 10^3/ul (4.5-11.0)
[2017-05-06 01:38] LABS: URINE BILIRUBIN NEGATIVE (NEGATIVE); URINE BLOOD NEGATIVE (NEGATIVE); URINE GLUCOSE (UA) NEGATIVE (NEGATIVE); URINE LEUKOCYTE ESTERASE NEGATIVE Leu/uL (NEGATIVE); URINE NITRATE NEGATIVE (NEGATIVE); URINE PROTEIN NEGATIVE mg/dL (<30 mg/dL); URINE UROBILINOGEN 0.2 E.U./dL (<1 E.U./dL)
[2017-05-06 01:40] LABS: URINE APPEARANCE CLEAR (CLEAR); URINE COLOR YELLOW (YELLOW)
[2017-05-06 06:32] LABS: BASO # 0.07 K/mm3 (0.0-2.0); BASO % 1.5 % (0.0-3.0); EOS # 0.2 (0.0-0.7); GRAN # 2.31 (1.4-6.5); GRAN % 49.2 % (50.0-68.0); HEMOGLOBIN 10.3 gm/dL (14.0-18.0); LYMPH # 1.6 (1.2-3.4); LYMPH % 33.4 % (22.0-35.0); MEAN CELL VOLUME 81.1 fL (80.0-105.0); MEAN CORPUSCULAR HEMOGLOBIN 25.3 pg (25.0-35.0); MEAN CORPUSCULAR HGB CONC 31.2 g/dl (31.0-37.0); MEAN PLATELET VOLUME 9.5 fl (7.0-11.0); MONO # 0.6 (0.1-0.6); MONO % 11.9 % (1.0-6.0); PLATELET COUNT 232 10^3/uL (120.0-450.0); RBC 4.07 10^6/uL (3.5-6.1); RED CELL DISTRIBUTION WIDTH 15.2 % (11.5-14.5); WHITE BLOOD COUNT 4.7 10^3/ul (4.5-11.0)
[2017-05-06 06:54] LABS: ALB/GLOB RATIO 1.4 (1.1-1.8); ALBUMIN 3.3 g/dL (3.0-4.8); ALT/SGPT 20 U/L (7-56); AST/SGOT 25 U/L (15-59); BLOOD UREA NITROGEN 13 mg/dL (7-21); CALCIUM 8.6 mg/dL (8.4-10.5); GFR AFRICAN-AMERICAN > 60; GFR NON-AFRICAN AMERICAN > 60
[2017-05-06] MEDS ORDERED: Dextrose 50% SYRINGE Inj (50 ml) ONE (07:11)
[2017-05-06] MEDS ORDERED: Dextrose 50% SYRINGE Inj (50 ml) IVP ONE (07:49)
[2017-05-06] MEDS: Sodium Chloride 0.45% 1,000 ML IV SCH (08:07)
--- NOTE | 2017-05-06 08:21 | CP.PCM.DIS ---
Provider - Provider Date of Admission: 05/04/17 20:11 Attending physician: Bishop Ferrer DO Primary care physician: Nancy Puga MD Time Spent in preparation of Discharge (in minutes): 15 Hospital Course - Lab Results Lab Results: Most Recent Lab Values WBC 4.7 10^3/ul (4.5-11.0) D 05/06/17 05:30 RBC 4.07 10^6/uL (3.5-6.1) 05/06/17 05:30 Hgb 10.3 gm/dL (14.0-18.0) L 05/06/17 05:30 Hct 33.0 % (42.0-52.0) L 05/06/17 05:30 MCV 81.1 fL (80.0-105.0) 05/06/17 05:30 MCH 25.3 pg (25.0-35.0) 05/06/17 05:30 MCHC 31.2 g/dl (31.0-37.0) 05/06/17 05:30 RDW 15.2 % (11.5-14.5) H 05/06/17 05:30 Plt Count 232 10^3/uL (120.0-450.0) 05/06/17 05:30 MPV 9.5 fl (7.0-11.0) 05/06/17 05:30 Gran % 49.2 % (50.0-68.0) L 05/06/17 05:30 Lymph % (Auto) 33.4 % (22.0-35.0) 05/06/17 05:30 [place] % (Auto) 11.9 % (1.0-6.0) H 05/06/17 05:30 Eos % (Auto) 4.0 % (1.5-5.0) 05/06/17 05:30 Baso % (Auto) 1.5 % (0.0-3.0) 05/06/17 05:30 Gran # 2.31 (1.4-6.5) 05/06/17 05:30 Lymph # 1.6 (1.2-3.4) 05/06/17 05:30 [place] # 0.6 (0.1-0.6) 05/06/17 05:30 Eos # 0.2 (0.0-0.7) 05/06/17 05:30 Baso # 0.07 K/mm3 (0.0-2.0) 05/06/17 05:30 PT 11.3 Seconds (9.9-11.8) 05/04/17 18:44 INR 1.05 (0.93-1.08) 05/04/17 18:44 APTT 26.1 Seconds (23.7-30.8) 05/04/17 18:44 Sodium 140 mmol/L (132-148) 05/06/17 05:30 Potassium 3.8 mmol/L (3.6-5.0) 05/06/17 05:30 Chloride 108 mmol/L (98-107) H 05/06/17 05:30 Carbon Dioxide 21 mmol/L (21-33) 05/06/17 05:30 Anion Gap 15 (10-20) 05/06/17 05:30 BUN 13 mg/dL (7-21) 05/06/17 05:30 Creatinine 0.7 mg/dL (0.5-1.4) 05/06/17 05:30 Est GFR ( Amer) > 60 05/06/17 05:30 Est GFR (Non-Af Amer) > 60 05/06/17 05:30 Random Glucose 43 mg/dL (70-110) L* D 05/06/17 05:30 Calcium 8.6 mg/dL (8.4-10.5) 05/06/17 05:30 TIBC 358 ug/dL (261-462) 05/04/17 18:44 Transferrin 270.28 mg/dL (206-381) 05/04/17 18:44 Ferritin 6.9 ng/mL 05/04/17 18:44 Total Bilirubin 0.7 mg/dL (0.2-1.3) 05/06/17 05:30 AST 25 U/L (15-59) 05/06/17 05:30 ALT 20 U/L (7-56) 05/06/17 05:30 Alkaline Phosphatase 42 U/L (38-133) 05/06/17 05:30 Lactate Dehydrogenase 323 U/L (333-699) L 05/04/17 18:44 Total Creatine Kinase 43 U/L (35-230) 05/04/17 18:44 Troponin I < 0.01 ng/mL 05/05/17 13:00 NT-Pro-B Natriuret Pep 72.4 pg/mL (0-450) 05/04/17 18:44 Total Protein 5.8 g/dL (5.8-8.3) 05/06/17 05:30 Albumin 3.3 g/dL (3.0-4.8) 05/06/17 05:30 Globulin 2.4 gm/dL 05/06/17 05:30 Albumin/Globulin Ratio 1.4 (1.1-1.8) 05/06/17 05:30 Urine Color Yellow (YELLOW) 05/06/17 01:00 Urine Appearance Clear (CLEAR) 05/06/17 01:00 Urine pH 6.0 (4.7-8.0) 05/06/17 01:00 Ur Specific Leon 1.020 (1.005-1.035) 05/06/17 01:00 Urine Protein Negative mg/dL (<30 mg/dL) 05/06/17 01:00 Urine Glucose (UA) Negative mg/dL (NEGATIVE) 05/06/17 01:00 Urine Ketones 40 mg/dL (NEGATIVE) H 05/06/17 01:00 Urine Blood Negative (NEGATIVE) 05/06/17 01:00 Urine Nitrate Negative (NEGATIVE) 05/06/17 01:00 Urine Bilirubin Negative (NEGATIVE) 05/06/17 01:00 Urine Urobilinogen 0.2 E.U./dL (<1 E.U./dL) 05/06/17 01:00 Ur Leukocyte Esterase Negative Bry/uL (NEGATIVE) 05/06/17 01:00 Blood Type O POSITIVE 05/04/17 18:44 Blood Type Confirm O POSITIVE 05/04/17 19:00 Antibody Screen Negative 05/04/17 18:44 BBK History Checked No verified bt 05/04/17 18:44 - Hospital Course Hospital Course: cp epigastric pain endo jejunal ulcer icu ivfluids protonix npo needs to quit smoking outpatient est w/ cardio and gi follow up meds healthier diet Discharge Exam - Head Exam Head Exam: ATRAUMATIC, NORMAL INSPECTION, NORMOCEPHALIC - ENT Exam ENT Exam: Mucous Membranes Moist - Respiratory Exam Respiratory Exam: Decreased Breath Sounds, Clear to PA & Lateral - Cardiovascular Exam Cardiovascular Exam: REGULAR RHYTHM - GI/Abdominal Exam GI & Abdominal Exam: Normal Bowel Sounds, Soft - Extremities Exam Extremities exam: normal inspection - Neurological Exam Neurological exam: Alert, CN II-XII Intact, Oriented x3 - Skin Skin Exam: Warm Discharge Plan - Follow Up Plan Condition: FAIR Disposition: HOME/ ROUTINE Additional Instructions: follow up w/ gi and cardio w/ outpatient est must quit smoking meds Referrals: Nancy Puga MD [Primary Care Provider] -
--- NOTE | 2017-05-06 09:56 | CP.PCM.PN ---
Subjective - Date & Time of Evaluation Date of Evaluation: 05/06/17 Time of Evaluation: 08:40 - Subjective Subjective: S&E at bedside this am, had EGD yesterday and found to have anastomotic ulcer and jejunal ulcer with visible vessel that was not bleeding, had BICAP w/ injection. No reports of melena or BRBP, epigastric pain has improved. Hungry. Abdominal US show GB stone, no dilation. No new complaints or acute overnight events. Objective - Vital Signs/Intake and Output Vital Signs (last 24 hours): Temp Pulse Resp BP Pulse Ox 97 F L 52 L 18 111/57 L 98 05/05/17 19:51 05/06/17 06:47 05/05/17 19:51 05/05/17 19:51 05/05/17 19:51 Intake and Output: 05/06/17 05/06/17 06:59 18:59 Intake Total 1200 Output Total 800 Balance 400 - Medications Medications: Current Medications Acetaminophen (Tylenol 325mg Tab) 650 mg PO Q6H PRN PRN Reason: Pain, severe (8-10) Sodium Chloride (Sodium Chloride 0.45%) 1,000 mls @ 40 mls/hr IV .Q24H [facility] Last Admin: 05/06/17 08:07 Dose: 40 mls/hr Sodium Chloride (Sodium Chloride 0.9%) 1,000 mls @ 100 mls/hr IV .Q10H [facility] Last Admin: 05/05/17 18:28 Dose: 100 mls/hr Sodium Chloride (Sodium Chloride 0.9%) 1,000 mls @ 100 mls/hr IV .Q10H [facility] Ketorolac Tromethamine (Toradol) 30 mg IVP Q6 PRN PRN Reason: Pain, moderate (4-7) Last Admin: 05/05/17 11:10 Dose: 30 mg Morphine Sulfate (Morphine) 1 mg IVP Q6 PRN PRN Reason: Pain, moderate (4-7) Last Admin: 05/06/17 07:34 Dose: 1 mg Pantoprazole Sodium (Protonix Inj) 40 mg IVP Q12 [facility] Last Admin: 05/06/17 09:27 Dose: 40 mg - Labs Labs: 05/06/17 05:30 05/06/17 05:30 PT 11.3 Seconds (9.9-11.8) 05/04/17 18:44 INR 1.05 (0.93-1.08) 05/04/17 18:44 APTT 26.1 Seconds (23.7-30.8) 05/04/17 18:44 - Constitutional Appears: No Acute Distress - Eye Exam Eye Exam: Normal appearance. absent: Scleral icterus - ENT Exam ENT Exam: Mucous Membranes Moist - Neck Exam Neck Exam: Normal Inspection - Respiratory Exam Respiratory Exam: Clear to Ausculation Bilateral, NORMAL BREATHING PATTERN. absent: Respiratory Distress - Cardiovascular Exam Cardiovascular Exam: +S1, +S2 - GI/Abdominal Exam GI & Abdominal Exam: Soft, Tenderness (mild epigastgric, although much improved) , Normal Bowel Sounds. absent: Distended, Guarding, Organomegaly, Rebound - Extremities Exam Extremities Exam: absent: Calf Tenderness, Pedal Edema - Neurological Exam Neurological Exam: Alert, Awake, Oriented x3 - Skin Skin Exam: Dry, Warm Assessment and Plan - Assessment and Plan (Free Text) Assessment: ASSESSMENT: s/p GI Bleed, s/p EGD found anastomotic ulcer and jejunal ulcer with visible vessel that was not bleeding, had BICAP w/ injection Gallstones Gastric Bypass Back pain w/neuro stimulator PLAN: start clear liquid, advance as tolerated as long as H/H steady and no bleeding continue Protonix 40 BID repeat egd 8 weeks to FU healing of ulcer Avoid NSAIDS monitor H/H Seen and discussed with Dr. Bernard.
[2017-05-06 11:28] VITALS: BP 94/52
[2017-05-06 12:06] LABS: BASO # 0.04 K/mm3 (0.0-2.0); BASO % 0.9 % (0.0-3.0); EOS # 0.1 (0.0-0.7); EOS % 2.8 % (1.5-5.0); GRAN # 2.29 (1.4-6.5); GRAN % 52.5 % (50.0-68.0); HEMOGLOBIN 10.5 gm/dL (14.0-18.0); LYMPH # 1.5 (1.2-3.4); LYMPH % 33.9 % (22.0-35.0); MEAN CELL VOLUME 80.3 fL (80.0-105.0); MEAN CORPUSCULAR HEMOGLOBIN 25.9 pg (25.0-35.0); MEAN CORPUSCULAR HGB CONC 32.2 g/dl (31.0-37.0); MEAN PLATELET VOLUME 9.1 fl (7.0-11.0); MONO # 0.4 (0.1-0.6); MONO % 9.9 % (1.0-6.0); PLATELET COUNT 234 10^3/uL (120.0-450.0); RBC 4.06 10^6/uL (3.5-6.1); RED CELL DISTRIBUTION WIDTH 14.9 % (11.5-14.5); WHITE BLOOD COUNT 4.4 10^3/ul (4.5-11.0)
--- NOTE | 2017-05-06 12:29 | CP.PCM.PN ---
Subjective - Date & Time of Evaluation Date of Evaluation: 05/06/17 Time of Evaluation: 12:28 - Subjective Subjective: PT S&E at bedside. diet was changed to liquid from NPO. Patient is tolerating pain well. Denies F/C, V/V, C/D. Objective - Vital Signs/Intake and Output Vital Signs (last 24 hours): Temp Pulse Resp BP Pulse Ox 97 F L 53 L 9 L 94/52 L 98 05/05/17 19:51 05/06/17 11:20 05/06/17 11:20 05/06/17 11:00 05/06/17 11:20 Intake and Output: 05/06/17 05/06/17 06:59 18:59 Intake Total 1200 Output Total 800 Balance 400 - Medications Medications: Current Medications Acetaminophen (Tylenol 325mg Tab) 650 mg PO Q6H PRN PRN Reason: Pain, severe (8-10) Sodium Chloride (Sodium Chloride 0.45%) 1,000 mls @ 40 mls/hr IV .Q24H [facility] Last Admin: 05/06/17 08:07 Dose: 40 mls/hr Sodium Chloride (Sodium Chloride 0.9%) 1,000 mls @ 100 mls/hr IV .Q10H [facility] Last Admin: 05/05/17 18:28 Dose: 100 mls/hr Sodium Chloride (Sodium Chloride 0.9%) 1,000 mls @ 100 mls/hr IV .Q10H [facility] Ketorolac Tromethamine (Toradol) 30 mg IVP Q6 PRN PRN Reason: Pain, moderate (4-7) Last Admin: 05/05/17 11:10 Dose: 30 mg Morphine Sulfate (Morphine) 1 mg IVP Q6 PRN PRN Reason: Pain, moderate (4-7) Last Admin: 05/06/17 07:34 Dose: 1 mg Pantoprazole Sodium (Protonix Inj) 40 mg IVP Q12 [facility] Last Admin: 05/06/17 09:27 Dose: 40 mg - Labs Labs: 05/06/17 12:01 05/06/17 05:30 PT 11.3 Seconds (9.9-11.8) 05/04/17 18:44 INR 1.05 (0.93-1.08) 05/04/17 18:44 APTT 26.1 Seconds (23.7-30.8) 05/04/17 18:44 - Constitutional Appears: Well - Head Exam Head Exam: NORMAL INSPECTION - Eye Exam Eye Exam: EOMI, Normal appearance - ENT Exam ENT Exam: Mucous Membranes Moist - Respiratory Exam Respiratory Exam: NORMAL BREATHING PATTERN. absent: Accessory Muscle Use, Rhonchi, Wheezes, Respiratory Distress - Cardiovascular Exam Cardiovascular Exam: Bradycardia, REGULAR RHYTHM. absent: Tachycardia - GI/Abdominal Exam GI & Abdominal Exam: Tenderness, Normal Bowel Sounds. absent: Distended, Firm, Guarding, Rigid, Pulsatile Mass, Rebound - Extremities Exam Extremities Exam: absent: Pedal Edema, Tenderness Assessment and Plan - Assessment and Plan (Free Text) Assessment: 46 M with GI bleed and cholelithiasis. Plan: monitor H&H f/u CBC Protonix 40 mg BID PT with f/u with EGD in 8 weeks to monitor ulcers
[2017-05-06 14:05] VITALS: RESP 45; O2SAT 99
--- NOTE | 2017-05-06 15:53 | CP.PCM.PN ---
<RACHNA RUIZ - Last Filed: 05/06/17 16:06> Subjective - Date & Time of Evaluation Date of Evaluation: 05/06/17 Time of Evaluation: 10:00 - Subjective Subjective: ICU PGY1 Progress Note: Pt seen and examined at bedside. Pt's BG 43 this AM, pt NPO on NS x 24h, given 25ml of D50 ->BG 90. Denies clamminess, diaphroesis, weakness, sob, fever, chills, n/v/d, abdominal pain, hemoptysis, hematochezia, leg swelling. Objective - Vital Signs/Intake and Output Vital Signs (last 24 hours): Temp Pulse Resp BP Pulse Ox 97 F L 51 L 45 H 94/52 L 99 05/05/17 19:51 05/06/17 14:00 05/06/17 14:00 05/06/17 11:00 05/06/17 11:40 Intake and Output: 05/06/17 05/06/17 06:59 18:59 Intake Total 1200 Output Total 800 Balance 400 - Medications Medications: Current Medications Acetaminophen (Tylenol 325mg Tab) 650 mg PO Q6H PRN PRN Reason: Pain, severe (8-10) Sodium Chloride (Sodium Chloride 0.45%) 1,000 mls @ 40 mls/hr IV .Q24H [facility] Last Admin: 05/06/17 08:07 Dose: 40 mls/hr Sodium Chloride (Sodium Chloride 0.9%) 1,000 mls @ 100 mls/hr IV .Q10H [facility] Last Admin: 05/05/17 18:28 Dose: 100 mls/hr Sodium Chloride (Sodium Chloride 0.9%) 1,000 mls @ 100 mls/hr IV .Q10H [facility] Ketorolac Tromethamine (Toradol) 30 mg IVP Q6 PRN PRN Reason: Pain, moderate (4-7) Last Admin: 05/05/17 11:10 Dose: 30 mg Morphine Sulfate (Morphine) 1 mg IVP Q6 PRN PRN Reason: Pain, moderate (4-7) Last Admin: 05/06/17 12:41 Dose: 1 mg Pantoprazole Sodium (Protonix Inj) 40 mg IVP Q12 [facility] Last Admin: 05/06/17 09:27 Dose: 40 mg - Labs Labs: 05/06/17 12:01 05/06/17 05:30 PT 11.3 Seconds (9.9-11.8) 05/04/17 18:44 INR 1.05 (0.93-1.08) 05/04/17 18:44 APTT 26.1 Seconds (23.7-30.8) 05/04/17 18:44 - Constitutional Appears: Well, In Acute Distress - Head Exam Head Exam: ATRAUMATIC, NORMOCEPHALIC - Eye Exam Eye Exam: PERRL - ENT Exam ENT Exam: Mucous Membranes Moist - Respiratory Exam Respiratory Exam: Clear to Ausculation Bilateral - Cardiovascular Exam Cardiovascular Exam: RRR, +S1, +S2. absent: Gallop, Rubs, Murmur - GI/Abdominal Exam GI & Abdominal Exam: Soft, Normal Bowel Sounds. absent: Distended, Guarding, Tenderness - Neurological Exam Neurological Exam: Alert, Awake, Oriented x3 - Psychiatric Exam Psychiatric exam: Normal Mood - Skin Skin Exam: Dry, Intact, Warm Assessment and Plan - Assessment and Plan (Free Text) Assessment: 46M, PMH gastric bypass, seizures, p/w upper GI bleed, found to be jejunal ulcer on EGD, s/p cauterization, admitted to ICU for observation and monitoring. Plan: Neuro: AAOx3. No mental status changes. Cardiovascular: Normotensive. Maintain MAP>65. Pulm: on RA, saturating well. maintain SaO2>90% GI: On CLD, tolerating well. Melena on admission, EGD showed jejunal ulcer with nonbleeding visible vessel s/p cautery. Pathology sent No overt bleeding - hematemesis, melena today. Serial cbcs show stable H/H: 11.4->10.3. GI following renal: stable, cont to monitor replace electrolytes as needed Heme: hgb at 10.3 today. stable, no sob, cp. GI PPX: protonix DVT ppx: SCDs Case discussed and seen with PGY2 and attending, Rachna Granado, PGY1 <Kelsey WHITAKER,Inaalberto H - Last Filed: 05/06/17 16:41> Objective - Vital Signs/Intake and Output Vital Signs (last 24 hours): Temp Pulse Resp BP Pulse Ox 97 F L 70 45 H 94/52 L 99 05/05/17 19:51 05/06/17 15:00 05/06/17 14:00 05/06/17 11:00 05/06/17 11:40 Intake and Output: 05/06/17 05/06/17 06:59 18:59 Intake Total 1200 300 Output Total 800 400 Balance 400 -100 - Medications Medications: Current Medications Acetaminophen (Tylenol 325mg Tab) 650 mg PO Q6H PRN PRN Reason: Pain, severe (8-10) Sodium Chloride (Sodium Chloride 0.45%) 1,000 mls @ 40 mls/hr IV .Q24H [facility] Last Admin: 05/06/17 08:07 Dose: 40 mls/hr Sodium Chloride (Sodium Chloride 0.9%) 1,000 mls @ 100 mls/hr IV .Q10H [facility] Last Admin: 05/05/17 18:28 Dose: 100 mls/hr Sodium Chloride (Sodium Chloride 0.9%) 1,000 mls @ 100 mls/hr IV .Q10H [facility] Ketorolac Tromethamine (Toradol) 30 mg IVP Q6 PRN PRN Reason: Pain, moderate (4-7) Last Admin: 05/05/17 11:10 Dose: 30 mg Morphine Sulfate (Morphine) 1 mg IVP Q6 PRN PRN Reason: Pain, moderate (4-7) Last Admin: 05/06/17 12:41 Dose: 1 mg Pantoprazole Sodium (Protonix Inj) 40 mg IVP Q12 [facility] Last Admin: 05/06/17 09:27 Dose: 40 mg - Labs Labs: 05/06/17 12:01 05/06/17 05:30 PT 11.3 Seconds (9.9-11.8) 05/04/17 18:44 INR 1.05 (0.93-1.08) 05/04/17 18:44 APTT 26.1 Seconds (23.7-30.8) 05/04/17 18:44 Attending/Attestation - Attestation I have personally seen and examined this patient.: Yes I have fully participated in the care of the patient.: Yes I have reviewed all pertinent clinical information, including history, physical exam and plan: Yes Notes (Text): 05/06/17 16:40 46 y/o M w/ UGI bleed, stable post EGD No further bleeding noted. HGB stable. Vitals are WNL. tolerating diet . On PPI dispo plans based on pcp and GI. Stable for transfer to med/ surg floor. cc time 45 min
[2017-05-06 16:28] VITALS: PULSE 70
--- NOTE | 2017-05-08 19:54 | CP.PCM.PN ---
Subjective - Date & Time of Evaluation Date of Evaluation: 05/06/17 Time of Evaluation: 07:00 - Subjective Subjective: The patient is status post endoscopy. He is comfortable, he is asymptomatic, and he is asking to go home. Objective - Vital Signs/Intake and Output Vital Signs (last 24 hours): 05/06/17: On physical exam, blood pressure varies from 90 to 119 systolic Heart rate is in the 50s Temp Pulse Resp BP Pulse Ox 97 F L 70 45 H 94/52 L 99 05/05/17 19:51 05/06/17 15:00 05/06/17 14:00 05/06/17 11:00 05/06/17 11:40 - Labs Labs: 05/06/17: Hemoglobin is 10.5 Chemistries: Glucose was initially 43, is now back to 93 05/06/17 12:01 05/06/17 05:30 PT 11.3 Seconds (9.9-11.8) 05/04/17 18:44 INR 1.05 (0.93-1.08) 05/04/17 18:44 APTT 26.1 Seconds (23.7-30.8) 05/04/17 18:44 - Neck Exam Additional comments: Negative JVD - Respiratory Exam Respiratory Exam: absent: Rales - Cardiovascular Exam Cardiovascular Exam: +S1, +S2 - Extremities Exam Extremities Exam: absent: Pedal Edema Assessment and Plan - Assessment and Plan (Free Text) Assessment: 1. GI bleed 2. COPD 3. Peptic ulcer disease 4. Anemia Plan: Given these findings, the patient is hemodynamically stable. I have discussed with patient about the need to stop smoking. We will arrange for an outpatient stress test.
== END 2017-05-06 16:15 | disposition home or self-care (01) | DRG 346 ==
LOC: ED 17:50 → ERH 20:11 → 2RNO 23:25 → CCU 05-05 17:41
PROVIDERS: ADMIT Family Medicine; ATTEND Family Medicine
PROC: 0D5A8ZZ Destruction of Jejunum, Via Natural or Artificial Opening Endoscopic (ICD-10-PCS; principal; 2017-05-05 17:15)
DX: K92.1 Melena (principal); K28.9 Gastrojejunal ulcer, unspecified as acute or chronic, without hemorrhage or perforation; R56.9 Unspecified convulsions; K21.0 Gastro-esophageal reflux disease with esophagitis; D64.9 Anemia, unspecified; F17.210 Nicotine dependence, cigarettes, uncomplicated; K80.20 Calculus of gallbladder without cholecystitis without obstruction; J44.9 Chronic obstructive pulmonary disease, unspecified; R07.89 Other chest pain; G89.29 Other chronic pain; M54.9 Dorsalgia, unspecified; Z96.89 Presence of other specified functional implants; Z98.84 Bariatric surgery status

== ENCOUNTER 2018-05-23 14:58 | Emergency (ER) | payer BC, MEDICAID ==
--- NOTE | 2018-05-23 15:44 | ED PDOC ---
Arrival/HPI - General Time Seen by Provider: 05/23/18 15:32 Historian: Patient - History of Present Illness Narrative History of Present Illness (Text): 05/23/18 15:32 47 y/o male pmh including seizure/dm, nkda, c/o needs shot of toradol for his pain. Pt. stated that he has left acromion fracture, drug abuse history, seeing orthopedic now, stated that he is pending MRI of the lt. shoulder, needs toradol IM for his pain, refused any narcotics, no chest pain or shortness of breath, no night sweat, no numbness or tingling, no other medical or psychological complaints. Past Medical History - Provider Review Nursing Documentation Reviewed: Yes - Infectious Disease Hx of Infectious Diseases: None - Tetanus Immunization Tetanus Immunization: Unknown - Neurological Hx Seizures: Yes - Renal Hx Renal Disorder: No - Endocrine/Metabolic Hx Diabetes Mellitus Type 1: Yes - Hematological/Oncological Hx Blood Transfusions: No Hx Blood Transfusion Reaction: No - Musculoskeletal/Rheumatological Hx Back Pain: Yes (Implant in the back, neuro stimulator) Hx Falls: No - Gastrointestinal Other/Comment: Gastric Bypass - Psychiatric Hx Depression: Yes Hx Emotional Abuse: No Hx Physical Abuse: No Hx Substance Use: No - Surgical History Hx Gastric Bypass Surgery: Yes (2007) Other/Comment: gastric bypass - Anesthesia Hx Anesthesia Reactions: No Hx Malignant Hyperthermia: No - Suicidal Assessment Feels Threatened In Home Enviroment: No Family/Social History - Physician Review Nursing Documentation Reviewed: Yes Family/Social History: Unknown Family HX Smoking Status: Heavy Smoker > 10 Cigarettes Daily Hx Alcohol Use: Yes (occasionally) Hx Substance Use: No Hx Substance Use Treatment: No Allergies/Home Meds Allergies/Adverse Reactions: Allergies bupropion HCl [From Wellbutrin] Allergy (Verified 05/04/17 18:00) ANAPHYLAXIS tramadol Allergy (Verified 05/04/17 18:03) ANAPHYLAXIS Home Medications: Home Meds Medication Instructions Recorded Confirmed Gabapentin [Neurontin] 100 mg PO BID 05/04/17 05/04/17 Review of Systems - Review of Systems Constitutional: absent: Fatigue, Fevers Eyes: absent: Vision Changes ENT: absent: Hearing Changes Respiratory: absent: SOB, Cough Cardiovascular: absent: Chest Pain Gastrointestinal: absent: Abdominal Pain, Nausea, Vomiting Musculoskeletal: Arthralgias. absent: Back Pain, Neck Pain, Joint Swelling, Myalgias Skin: absent: Rash, Pruritis Neurological: absent: Headache, Dizziness Psychiatric: absent: Anxiety, Depression, Suicidal Ideation Physical Exam - Systems Exam Head: Present: Atraumatic, Normocephalic Pupils: Present: PERRL Extroacular Muscles: Present: EOMI Conjunctiva: Present: Normal Mouth: Present: Moist Mucous Membranes Neck: Present: Normal Range of Motion Respiratory/Chest: Present: Clear to Auscultation, Good Air Exchange. No: Respiratory Distress, Accessory Muscle Use Cardiovascular: Present: Regular Rate and Rhythm, Normal S1, S2. No: Murmurs Abdomen: No: Tenderness, Distention, Peritoneal Signs, Rebound, Guarding Back: Present: Normal Inspection Upper Extremity: Present: Normal Inspection, Other (Lt. shoulder: mild tenderness on the left chronic acromion fracture , no swelling, no deformity, FROM without limitation, sensation intact, motor 5/5, neurovascular intact. ). No: Cyanosis, Edema Lower Extremity: Present: Normal Inspection. No: Edema Neurological: Present: GCS=15, CN II-XII Intact, Speech Normal, Motor Func Grossly Intact, Gait Normal, Memory Normal Skin: Present: Warm, Dry, Normal Color. No: Rashes Psychiatric: Present: Alert, Oriented x 3, Normal Insight, Normal Concentration Medical Decision Making ED Course and Treatment: 05/23/18 15:52 -Toradol IM, sling, pt. refused reimaging the xray and stated that he has no new injury. 05/23/18 16:15 -Pt. is asking for morphine shot now, morphine 2mg IM ordered, request to be discharged, is driving him home. Pt. stated that he had morphine before. -Discharge home with sling, continue tylenol or motrin at home for as needed, follow up with your own pmd and orthopedic for the outpatient advanced imaging as you scheduled, return to the ER for any new or worsening signs or symptoms. - Medication Orders Current Medication Orders: Discontinued Medications Ketorolac Tromethamine (Toradol) 60 mg IM STAT [facility] Stop: 05/23/18 16:04 - PA / SUM[facility] TANNER / Resident Statement /DO has reviewed & agrees with the documentation as recorded. Disposition/Present on Arrival - Present on Arrival Any Indicators Present on Arrival: No History of DVT/PE: No History of Uncontrolled Diabetes: No Urinary Catheter: No History of Decub. Ulcer: No History Surgical Site Infection Following: None - Disposition Have Diagnosis and Disposition been Completed?: Yes Diagnosis: Pain management Disposition: HOME/ ROUTINE Disposition Time: 16:16 Patient Plan: Discharge Patient Problems: Current Active Problems Problem Status Onset Pain management Acute Condition: GOOD Additional Instructions: -Discharge home with sling, continue tylenol or motrin at home for as needed, follow up with your own pmd and orthopedic for the outpatient advanced imaging as you scheduled, return to the ER for any new or worsening signs or symptoms. Referrals: Mnauel Beatty DO [Staff Provider] - Follow up with primary Forms: WORK NOTE
[2018-05-23 16:03] VITALS: BMI 22.9
[2018-05-23] MEDS ORDERED: Morphine 2 mg/ml ISec IM STA (16:15)
[2018-05-23 16:20] VITALS: RESP 17; TEMP 98.4
[2018-05-23 17:04] VITALS: BP 121/70; PULSE 68; O2SAT 100
== END 2018-05-23 17:06 | disposition home or self-care (01) ==
LOC: ED 14:58
DX: G89.29 Other chronic pain (principal)
CPT/HCPCS: 96372; 99284; J1885; J2270

== ENCOUNTER 2018-05-27 12:01 | Emergency (ER) | payer MEDICAID ==
[2018-05-27 12:02] VITALS: BMI 22.9
[2018-05-27 12:23] VITALS: BP 106/74; PULSE 83; RESP 16; TEMP 99.8; O2SAT 99
[2018-05-27] MEDS ORDERED: Morphine 2 mg/ml ISec IM STA (12:59)
--- NOTE | 2018-05-27 13:33 | ED PDOC ---
Arrival/HPI - General Chief Complaint: Upper Extremity Problem/Injury Time Seen by Provider: 05/27/18 12:10 Historian: Patient - History of Present Illness Narrative History of Present Illness (Text): 05/27/18 13:30 47yo male with past medical history of seizure, Diabetes, substance abuse, GI bleed present to Emergency department for pain relieve secondary to left acromion fracture. Patient states he fractured his shoulder in February. states he was seen by orthopedist and his PMD and currently awaiting approval for MRI. He notes that he saw his PMD on Thursday and was given ten tabs of percocet. States he only have one left and he needs pain medication. States he was seen here on and was given 2pain injection, requesting the same medications. He denies any new recent trauma, denies focal weakness, any other complaint. Past Medical History - Provider Review Nursing Documentation Reviewed: Yes - Infectious Disease Hx of Infectious Diseases: None - Tetanus Immunization Tetanus Immunization: Unknown - Cardiac Hx Cardiac Disorders: No - Pulmonary Hx Respiratory Disorders: No - Neurological Hx Neurological Disorder: Yes Hx Seizures: Yes - HEENT Hx HEENT Disorder: No - Renal Hx Renal Disorder: No - Endocrine/Metabolic Hx Endocrine Disorders: Yes Hx Diabetes Mellitus Type 2: Yes - Hematological/Oncological Hx Blood Disorders: No - Integumentary Hx Dermatological Disorder: No - Musculoskeletal/Rheumatological Hx Musculoskeletal Disorders: Yes Hx Back Pain: Yes Hx Fractures: Yes Other/Comment: NEURO STIM IMPLANT - Gastrointestinal Hx Gastrointestinal Disorders: Yes Other/Comment: Gastric Bypass - Genitourinary/Gynecological Hx Genitourinary Disorders: No - Psychiatric Hx Psychophysiologic Disorder: Yes Hx Depression: Yes Hx Substance Use: No - Surgical History Hx Gastric Bypass Surgery: Yes Other/Comment: gastric bypass - Anesthesia Hx Anesthesia Reactions: No Hx Malignant Hyperthermia: No - Suicidal Assessment Feels Threatened In Home Enviroment: No Family/Social History - Physician Review Nursing Documentation Reviewed: Yes Family/Social History: Unknown Family HX Smoking Status: Heavy Smoker > 10 Cigarettes Daily Hx Alcohol Use: Yes (occasionally) Hx Substance Use: No Hx Substance Use Treatment: No Allergies/Home Meds Allergies/Adverse Reactions: Allergies bupropion HCl [From Wellbutrin] Allergy (Verified 05/27/18 12:15) ANAPHYLAXIS tramadol Allergy (Verified 05/27/18 12:15) ANAPHYLAXIS Home Medications: Home Meds Medication Instructions Recorded Confirmed oxyCODONE/Acetaminophen [Percocet 1 tab PO Q12 05/27/18 05/27/18 5/325 mg Tab] Review of Systems - Physician Review All systems were reviewed & negative as marked: Yes - Review of Systems Constitutional: Normal Eyes: Normal ENT: Normal Respiratory: Normal Cardiovascular: Normal Gastrointestinal: Normal Genitourinary Male: Normal Musculoskeletal: Arthralgias (Left shoulder fracture) Skin: Normal Neurological: Normal Endocrine: Normal Hemo/Lymphatic: Normal Psychiatric: Normal Physical Exam Vital Signs Reviewed: Yes Vital Signs Temp Pulse Resp BP Pulse Ox 05/27/18 14:10 99.8 F H 83 16 106/74 99 05/27/18 12:17 99.8 F H 83 16 106/74 99 Temperature: Afebrile Blood Pressure: Normal Pulse: Regular Respiratory Rate: Normal Appearance: Positive for: Well-Appearing, Non-Toxic, Comfortable Pain Distress: None Mental Status: Positive for: Alert and Oriented X 3 - Systems Exam Head: Present: Atraumatic, Normocephalic Pupils: Present: PERRL Extroacular Muscles: Present: EOMI Conjunctiva: Present: Normal Mouth: Present: Moist Mucous Membranes Neck: Present: Normal Range of Motion Respiratory/Chest: Present: Clear to Auscultation, Good Air Exchange. No: Respiratory Distress, Accessory Muscle Use Cardiovascular: Present: Regular Rate and Rhythm, Normal S1, S2. No: Murmurs Abdomen: No: Tenderness, Distention, Peritoneal Signs Back: Present: Normal Inspection Upper Extremity: Present: Other (Left arm noted in a sling). No: Cyanosis, Edema Lower Extremity: Present: Normal Inspection. No: Edema Neurological: Present: GCS=15, CN II-XII Intact, Speech Normal Skin: Present: Warm, Dry, Normal Color. No: Rashes Psychiatric: Present: Alert, Oriented x 3, Normal Insight, Normal Concentration Medical Decision Making ED Course and Treatment: 05/27/18 20:18 Pt presented with his left arm on a sling. He presented a shoulder xray report that was taken in April that showed left acromion fracture. PT was given Toradol and Morphine in Emergency department for pain control. He stated that his PMD gave him 10tabs of Percocet on Thursday and he only have one tab left, so he is requesting pain medication. He was exhibiting drug seeking behavior. He was advised to f/u with his PMD or orthopedist for narcotics rx. He states he was referred to a pain management by his PMD and currently awaiting for appointment. He became verbally abusive in Emergency department. He was DC home to continue his home medication. - Medication Orders Current Medication Orders: Discontinued Medications Ketorolac Tromethamine (Toradol) 60 mg IM STAT STA Stop: 05/27/18 13:00 Last Admin: 05/27/18 13:10 Dose: 60 mg MAR Pain Assessment Document 05/27/18 13:10 [facility]CS (Rec: 05/27/18 13:10 [email or web address] Pain Reassessment Is this a pain reassessment? No Sleep Is patient sleeping during reassessment? No Presence of Pain Presence of Pain Yes Pain Scale Used Pain Scale Used Numeric Location Left, Right or Bilateral Left Pain Location Body Site Shoulder Description Description Constant Intensity of Pain at present 10 Aggravating Factors ADL's IM Administration Charges Document 05/27/18 13:10 [facility]CS (Rec: 05/27/18 13:10 [email or web address] Injection Site MAR Injection Site Right Arm Charges for Administration # of IM Administrations 1 Morphine Sulfate (Morphine) 2 mg IM STAT STA Stop: 05/27/18 13:00 Last Admin: 05/27/18 13:09 Dose: 2 mg MAR Pain Assessment Document 05/27/18 13:09 OCS (Rec: 05/27/18 13:10 [email or web address] Pain Reassessment Is this a pain reassessment? No Sleep Is patient sleeping during reassessment? No Presence of Pain Presence of Pain Yes Pain Scale Used Pain Scale Used Numeric Location Left, Right or Bilateral Left Pain Location Body Site Shoulder Description Description Constant Intensity of Pain at present 10 Aggravating Factors ADL's IM Administration Charges Document 05/27/18 13:09 [facility] (Rec: 05/27/18 13:10 [email or web address] Injection Site MAR Injection Site Right Arm Charges for Administration # of IM Administrations 1 Disposition/Present on Arrival - Present on Arrival Any Indicators Present on Arrival: No History of DVT/PE: No History of Uncontrolled Diabetes: No Urinary Catheter: No History of Decub. Ulcer: No History Surgical Site Infection Following: None - Disposition Have Diagnosis and Disposition been Completed?: Yes Diagnosis: Shoulder fracture Disposition: HOME/ ROUTINE Disposition Time: 13:55 Patient Plan: Discharge Condition: STABLE Discharge Instructions (ExitCare): Shoulder Fracture Additional Instructions: Follow up with your Doctor/pain management/orthopedist Return to Emergency department for any new or worsening symptoms Referrals: Shelby Garrido MD [Primary Care Provider] - Follow up with primary Forms: [employer] ([place]ani)
== END 2018-05-27 14:10 | disposition home or self-care (01) ==
LOC: ED 12:01
DX: S42.92XA Fracture of left shoulder girdle, part unspecified, initial encounter for closed fracture (principal); X58.XXXA Exposure to other specified factors, initial encounter; E11.9 Type 2 diabetes mellitus without complications; R56.9 Unspecified convulsions; F17.210 Nicotine dependence, cigarettes, uncomplicated
CPT/HCPCS: 96372; 99283; J1885; J2270